=== PATIENT | male | born 1965 | race Caucasian/White ===

== ENCOUNTER 2021-03-15 00:03 | Inpatient (IN) | payer MEDICAID ==
[~2021-03-15] VITALS: Ht 182.9 cm; Wt 87.9 kg
--- NOTE | 2021-03-15 00:17 | NUR ---
THIS IS A 56 YO M BIB EMS AFTER BEING FOUND ON THE GROUND OUTSIDE [facility] [employer] [place]. PT ARROUSES ONLY TO PAIN STIMULI BRIEFLY BEFORE GRUNTING AND GOING BACK TO SLEEP. PER PER EMS PT WAS HYPOXIC AND HYPOTENSIVE 76/46 DURING THEIR INITIAL ENCOUNTER. PT 76% RA , NORMOTENSIVE AT THIS TIME. 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 PT NOT ANSWERING QUESTIONS. CONNECTED TO ALL MONITORING. WILL CONTINUE TO MONITOR.
[2021-03-15 01:01] LABS: BASOPHILS % (AUTO) 1 % (0-1); EOSINOPHILS % (AUTO) 2 % (1-7); LYMPHOCYTES % (AUTO) 26 % (22-44); MEAN CORPUSCULAR HEMOGLOBIN 31.4 pg (27.5-34.5); MEAN CORPUSCULAR HGB CONC 33.3 g/dL (33.2-36.2); MEAN PLATELET VOLUME 9.2 fL (7.4-10.4); MONOCYTES % (AUTO) 10 % (2-9); NEUTROPHILS % (AUTO) 62 % (42-75); PLATELET COUNT 272 x10^3/uL (130-400); RED BLOOD COUNT 4.76 x10^6/uL (4.38-5.82); RED CELL DISTRIBUTION WIDTH 16.1 % (9.4-14.8)
[2021-03-15 01:09] LABS: ALBUMIN 2.8 g/dL (3.4-5.0); ANION GAP 5 mmol/L (5-15); CALCIUM 8.4 mg/dL (8.5-10.1); CHLORIDE 104 mmol/L (98-107); SALICYLATE LEVEL 3.7 mg/dL (2.8-20.0)
--- NOTE | 2021-03-15 01:10 | NUR ---
PT SAT UP AND MOVED SELF TO END OF [facility], REMOVING MONITORING, DEMANDING TO LEAVE, WANTS TO URINATE. PT STOOD UP AGAINST THIS RN'S ADVISEMENT. USED URINAL. RETURNED TO [facility] W/O INCIDENT. PT STILL HYPOXIC ROOM AIR. NASAL CANNULA PLACED ON PT. WILL CONTINUE TO MONITOR.
[2021-03-15 01:12] LABS: ALANINE AMINOTRANSFERASE 29 U/L (12-78); ALKALINE PHOSPHATASE 82 U/L (45-117); BILIRUBIN,TOTAL 0.3 mg/dL (0.2-1.0); CREATININE 0.63 mg/dL (0.7-1.3); TOTAL PROTEIN 6.8 g/dL (6.4-8.2)
[2021-03-15 01:47] LABS: AMPHETAMINE SCREEN, URINE Positive (Negative); BARBITURATE SCREEN, URINE Negative (Negative); BENZODIAZEPINE SCREEN, URINE Positive (Negative); CANNABINOID SCREEN, URINE Positive (Negative); COCAINE SCREEN, URINE Negative (Negative); METHADONE SCREEN, URINE Negative (Negative); OPIATE SCREEN, URINE Positive (Negative)
--- NOTE | 2021-03-15 02:00 | NUR ---
PT SLEEPING ON GURNEY, RESP EVEN AND UNLABORED, NADN.
[2021-03-15] MEDS ORDERED: AZITHROMYCIN 500 MG in SODIUM CHLORIDE 0.9% 250 ML IV ONE (02:30)
[2021-03-15] MEDS ORDERED: MAGNESIUM SULFATE 1 GM, THIAMINE 100 MG, FOLIC ACID 1 MG, MVI ADULT 10 ML in SODIUM CHL... IV ONE (02:30)
[2021-03-15] MEDS ORDERED: ALBUTEROL/IPRATROPIUM 2.5MG/0.5MG, 3 ML NPPB ONE (02:30)
[2021-03-15] MEDS ORDERED: CEFTRIAXONE 1,000 MG in DEXTROSE 5% 50 ML IVPB ONE (02:30)
--- NOTE | 2021-03-15 02:30 | NUR ---
UNABLE TO GIVE BREATHING TX D/T PTS AMS.
--- NOTE | 2021-03-15 03:01 | NUR ---
LAB AT BEDSIDE FOR CULTURES.
--- NOTE | 2021-03-15 03:20 | NUR ---
PER TEMPER MILL OPERATOR UNABLE TO OBTAIN BLOOD CULTURES AT THIS TIME. Addendum: 03/15/21 at 0436 by REYAGA PER TEMPER MILL OPERATOR UNABLE TO OBTAIN BLOOD CULTURES AT THIS TIME. ALSO BELIEVES ABG MAY BE FROM VENOUS.
--- NOTE | 2021-03-15 03:40 | NUR ---
UNABLE TO START 2ND PIV X2, CAMPBELL RN AT BEDSIDE FOR ATTEMPT.
--- NOTE | 2021-03-15 03:50 | NUR ---
2nd PIV STARTED, 1ST SET OF BLOOD CULTURES DRAWN.
--- NOTE | 2021-03-15 03:51 | NUR ---
TELEPHONE CALL TO LAB REQUESTING 2ND SET BLOOD CULTURE DRAW.
--- NOTE | 2021-03-15 04:10 | NUR ---
LAB AT BEDSIDE FOR ABG REDRAW, AND BLOOD CULTURE.
--- NOTE | 2021-03-15 04:21 | NUR ---
PER LAB TECHS ABG REDRAWN AND 2ND SET OF CULTURES DRAWN. ABX STARTED.
--- NOTE | 2021-03-15 04:30 | NUR ---
PT MORE AWAKE AFTER CHANGING INTO GOWN. ANSWERING QUESTIONS.
--- NOTE | 2021-03-15 04:34 | NUR ---
TELEPHONE CALL FROM LAB. TECH BELIEVES ABG REDRAW IS ALSO A VENOUS SAMPLE AND DILUTED. REPORTS CRITICAL VALUES PH [phone] PCO2 14.3 O2 86.3. PER CANCEL AND REDRAW FOR 3RD ATTEMPT.
[2021-03-15] MEDS ORDERED: ACETAMINOPHEN 325 MG TABLET PO PRN (05:00)
[2021-03-15] MEDS ORDERED: LABETALOL 5MG/ML, 20ML IVPush PRN (05:00)
[2021-03-15] MEDS ORDERED: PROMETHAZINE 25 MG/ML, 1ML IM PRN (05:00)
--- NOTE | 2021-03-15 05:04 | NUR ---
[employer] HCM CONSULTANT AT BEDSIDE FOR 3RD ATTEMPT ABG.
--- NOTE | 2021-03-15 05:05 | NUR ---
REPORT TO CAMPBELL RN. PT RESTING ON [employer] TECH AT BEDSIDE. PT EASILY AROUSABLE, NOW ABLE TO ANSWER QUESTIONS APPROPRIATELY. DANYELL [place]. AWAITING ADMIT.
[2021-03-15] MEDS ORDERED: POTASSIUM CHLORIDE 20 MEQ, MAGNESIUM SULFATE 2 GM, THIAMINE 200 MG, MVI ADULT 10 ML, FO... IV SCH (06:30)
[2021-03-15 06:36] VITALS: BP 115/78
[2021-03-15] MEDS: ENOXAPARIN 40 MG/0.4 ML SQ SCH (06:43)
[2021-03-15 16:58] VITALS: BP 110/71
[2021-03-15 21:01] VITALS: BP 105/60
[2021-03-16 01:11] VITALS: BP 112/69
[2021-03-16] MEDS: POTASSIUM CHLORIDE 20 MEQ, MAGNESIUM SULFATE 2 GM, THIAMINE 200 MG, MVI ADULT 10 ML, FO... IV SCH ×2 (04:54→13:04)
[2021-03-16 06:32] VITALS: BP 117/75
[2021-03-16 06:58] LABS: BASOPHILS % (AUTO) 1 % (0-1); EOSINOPHILS % (AUTO) 2 % (1-7); LYMPHOCYTES % (AUTO) 18 % (22-44); MEAN CORPUSCULAR HEMOGLOBIN 31.1 pg (27.5-34.5); MEAN CORPUSCULAR HGB CONC 33.1 g/dL (33.2-36.2); MEAN PLATELET VOLUME 9.1 fL (7.4-10.4); MONOCYTES % (AUTO) 14 % (2-9); NEUTROPHILS % (AUTO) 65 % (42-75); PLATELET COUNT 297 x10^3/uL (130-400); RED BLOOD COUNT 4.74 x10^6/uL (4.38-5.82)
[2021-03-16 07:06] LABS: CALCIUM 8.4 mg/dL (8.5-10.1); CREATININE 0.62 mg/dL (0.7-1.3)
[2021-03-16 07:34] LABS: CHLORIDE 106 mmol/L (98-107)
[2021-03-16 07:37] LABS: ANION GAP 3 mmol/L (5-15)
[2021-03-16] MEDS: ENOXAPARIN 40 MG/0.4 ML SQ SCH (08:06)
[2021-03-16 15:34] VITALS: BP 120/74
[2021-03-16] MEDS: KETOROLAC 30 MG/1 ML IVPush SCH ×2 (17:36→23:20)
[2021-03-16 20:07] VITALS: BP 133/87
[2021-03-17 05:45] VITALS: BP 148/88
[2021-03-17] MEDS: KETOROLAC 30 MG/1 ML IVPush SCH ×3 (05:52→20:30)
[2021-03-17] MEDS: POTASSIUM CHLORIDE 20 MEQ, MAGNESIUM SULFATE 2 GM, THIAMINE 200 MG, MVI ADULT 10 ML, FO... IV SCH (05:52)
[2021-03-17 06:55] VITALS: BP 149/89
[2021-03-17] MEDS: ENOXAPARIN 40 MG/0.4 ML SQ SCH (08:04)
[2021-03-17 12:15] VITALS: BP 130/84
[2021-03-17] MEDS ORDERED: CEFTRIAXONE 2 GM in DEXTROSE 5% 50 ML IVPB SCH (18:00)
[2021-03-17] MEDS ORDERED: AZITHROMYCIN 500 MG in SODIUM CHLORIDE 0.9% 250 ML IV SCH (18:30)
[2021-03-17 19:00] VITALS: BP 122/78
[2021-03-18 01:35] VITALS: BP 117/72
[2021-03-18] MEDS: KETOROLAC 30 MG/1 ML IVPush SCH ×3 (02:07→14:31)
[2021-03-18] MEDS: POTASSIUM CHLORIDE 20 MEQ, MAGNESIUM SULFATE 2 GM, THIAMINE 200 MG, MVI ADULT 10 ML, FO... IV SCH (06:16)
[2021-03-18 07:06] VITALS: BP 131/83
[2021-03-18] MEDS: ENOXAPARIN 40 MG/0.4 ML SQ SCH (09:55)
[2021-03-18 14:19] VITALS: BP 139/82
[2021-03-18] MEDS ORDERED: CEFD300C37 PO (14:20)
[2021-03-18] MEDS ORDERED: AZIT250T PO (14:20)
[2021-03-18] MEDS ORDERED: ALBU6.7H8 INH (14:20)
== END 2021-03-18 14:00 | disposition home or self-care (01) | DRG 91 ==
LOC: ED 05:39 → 4EST 06:04
PROVIDERS: ADMIT Family Medicine; ATTEND Family Medicine
DX: G92 Toxic encephalopathy (principal); J96.01 Acute respiratory failure with hypoxia; J15.9 Unspecified bacterial pneumonia; F10.229 Alcohol dependence with intoxication, unspecified; Y90.8 Blood alcohol level of 240 mg/100 ml or more; F19.10 Other psychoactive substance abuse, uncomplicated; R94.31 Abnormal electrocardiogram [ECG] [EKG]; E87.6 Hypokalemia; Z59.0 Homelessness; Z63.8 Other specified problems related to primary support group; Z87.891 Personal history of nicotine dependence
CPT/HCPCS: 36415; 36600; 96365; 96375; 99285; J7042; 70450; 71045; 80048; 80053; 80299; 80307; 80320; 80329; 82803; 83605; 83735; 85025; 87040; 93005; G0378; J0456; J0696; J1650; J1885; J3411; J3475; J3480; G0480; J7030; J7050